=== PATIENT | male | born 1985 | race Caucasian/White ===

== ENCOUNTER → 2021-09-10 | Emergency (ER) | payer OTHER ==
[~2021-09-10] VITALS: Ht 175.3 cm; Wt 90.7 kg
== END | disposition left against medical advice (07) ==
LOC: ER 05:04
DX: S01.81XA Laceration without foreign body of other part of head, initial encounter (principal); Y04.0XXA Assault by unarmed brawl or fight, initial encounter; Y93.89 Activity, other specified; Y92.488 Other paved roadways as the place of occurrence of the external cause; H57.89 Other specified disorders of eye and adnexa